=== PATIENT | female | born 1955 | race Caucasian/White ===

== ENCOUNTER 2021-01-31 16:22 | Inpatient (IN) | payer MEDICARE, OTHER ==
[~2021-01-31] VITALS: Ht 175.2 cm; Wt 120.2 kg
[~2021-01-31 16:22] MED LIST: ATIVAN0.5 MG PO; BUMETANIDE0.5 MG PO; HUMALOG KW200 UNIT/1 SQ; INVEGA3 MG PO; KEPPRA500 MG PO; KLOR-CON 1010 ME1 PO; LANTUS SOL100 UNIT/1 SC; LIPITOR10 MG PO; VIMPAT50 MG PO; VITAMIN D325 MC1 PO
[2021-01-31 16:39] LABS: BASO % 0.5 % (0.0-1.0); EOS # 0.1 10*3/uL (0.0-0.4); EOS % 1.7 % (1.0-4.0); HEMATOCRIT 36.3 % (37.0-47.0); LYMPH % 13.4 % (27.0-41.0); MEAN CELL VOLUME 90.5 fl (81.0-99.0); MEAN CORPUSCULAR HGB 28.4 pg (27.0-31.0); MEAN CORPUSCULAR HGB CONC 31.4 g/dl (33.0-37.0); MEAN PLATELET VOLUME 12.9 fl (9.6-12.3); MONO # 0.6 10*3/uL (0.1-1.0); MONO % 8.4 % (3.0-9.0); NEUT # 5.7 10*3/uL (2.3-7.9); NEUT % 75.6 % (47.0-73.0); PLATELET COUNT AUTOMATED 137 10*3/uL (130-400); RED BLOOD COUNT 4.01 10*6/uL (4.10-5.10); RED CELL DISTRI WIDTH 15.4 % (0-14.5); WHITE BLOOD COUNT 7.6 10*3/uL (4.8-10.8)
[2021-01-31 16:50] VITALS: BP 185/72
[2021-01-31 16:56] LABS: ALBUMIN 2.4 gm/dl (3.1-4.5); CREATININE 1.75 mg/dL (0.55-1.02); POTASSIUM 3.8 mmol/L (3.5-5.1); TOTAL PROTEIN 5.5 gm/dL (6.4-8.2)
[2021-01-31 17:04] LABS: THYROID STIM HORMONE (HS) 2.28 uIU/ml (0.358-4.75)
[2021-01-31 18:35] LABS: BILIRUBIN Negative (Negative); BLOOD 1+ (Negative); CLARITY Clear (Clear); COLOR Yellow (Yellow); GLUCOSE Negative (Negative); KETONE Negative (Negative); LEUKO ESTERASE Negative (Negative); NITRITE Negative (Negative); SPECIFIC GRAVITY 1.015 (1.001-1.030); UROBILINOGEN 0.2 E.U./dl (0.0-1.0)
[2021-01-31 18:45] LABS: RBC 0-2 rbc/hpf (0-2)
[2021-01-31 18:46] LABS: BACTERIA TRACE; EPITHELIAL CELLS 0-2; WBC 0-2 wbc/hpf (0-5)
[2021-01-31 20:30] VITALS: BP 131/57
[2021-01-31 21:30] VITALS: BP 130/72
[2021-01-31 21:38] LABS: CREATININE 1.73 mg/dL (0.55-1.02); POTASSIUM 3.8 mmol/L (3.5-5.1)
[2021-01-31 22:00] VITALS: BP 128/71
[2021-01-31 23:00] VITALS: BP 141/79
[2021-02-01] VITALS (7 sets, daily range): BP systolic 133–164; BP diastolic 65–84
[2021-02-01 05:19] LABS: ALBUMIN 2.1 gm/dl (3.1-4.5); CREATININE 1.7 mg/dL (0.55-1.02); POTASSIUM 3.6 mmol/L (3.5-5.1); TOTAL PROTEIN 5.1 gm/dL (6.4-8.2)
[2021-02-01 05:25] LABS: FREE T4 0.95 ng/dl (0.76-1.46); THYROID STIM HORMONE (HS) 2.71 uIU/ml (0.358-4.75)
[2021-02-01 07:17] LABS: BASO % 0.7 % (0.0-1.0); EOS # 0.1 10*3/uL (0.0-0.4); HEMATOCRIT 33.5 % (37.0-47.0); LYMPH # 0.9 10*3/uL (1.3-4.4); LYMPH % 16.5 % (27.0-41.0); MEAN CELL VOLUME 92.3 fl (81.0-99.0); MEAN CORPUSCULAR HGB 28.7 pg (27.0-31.0); MEAN PLATELET VOLUME 13.5 fl (9.6-12.3); MONO # 0.5 10*3/uL (0.1-1.0); MONO % 9.4 % (3.0-9.0); PLATELET COUNT AUTOMATED 121 10*3/uL (130-400); RED BLOOD COUNT 3.63 10*6/uL (4.10-5.10); RED CELL DISTRI WIDTH 15.4 % (0-14.5); WHITE BLOOD COUNT 5.6 10*3/uL (4.8-10.8)
[2021-02-01 08:05] LABS: VITAMIN D, 25-HYDROXY 32.1 ng/mL (30-100)
[2021-02-02 03:25] VITALS: BP 163/73
[2021-02-02 06:09] LABS: POTASSIUM 3.8 mmol/L (3.5-5.1)
[2021-02-02 06:17] LABS: CREATININE 1.53 mg/dL (0.55-1.02)
[2021-02-02 06:34] LABS: BASO % 0.6 % (0.0-1.0); EOS # 0.1 10*3/uL (0.0-0.4); EOS % 1.5 % (1.0-4.0); HEMATOCRIT 35.6 % (37.0-47.0); LYMPH # 0.9 10*3/uL (1.3-4.4); LYMPH % 13.3 % (27.0-41.0); MEAN CORPUSCULAR HGB 28.2 pg (27.0-31.0); MEAN CORPUSCULAR HGB CONC 30.6 g/dl (33.0-37.0); MEAN PLATELET VOLUME 13.7 fl (9.6-12.3); MONO # 0.6 10*3/uL (0.1-1.0); MONO % 9.1 % (3.0-9.0); NEUT % 75.2 % (47.0-73.0); PLATELET COUNT AUTOMATED 124 10*3/uL (130-400); RED BLOOD COUNT 3.87 10*6/uL (4.10-5.10); RED CELL DISTRI WIDTH 14.9 % (0-14.5); WHITE BLOOD COUNT 6.6 10*3/uL (4.8-10.8)
[2021-02-02 07:34] VITALS: BP 139/77
[2021-02-02 13:38] VITALS: BP 150/70
[2021-02-02] MEDS ORDERED: TOBRAMYCIN 5 ML5 M1 OPH (14:45)
[2021-02-02] MEDS ORDERED: ARTIFICIAL TEAR15 M9 OP (15:32)
== END 2021-02-02 15:00 | DRG 637 ==
LOC: ED 16:22 → EDHOLD 22:01
PROVIDERS: Emergency Medicine; Internal Medicine; Student in an Organized Health Care Education/Training Program; ADMIT Family Medicine; ATTEND Family Medicine
DX: E11.649 Type 2 diabetes mellitus with hypoglycemia without coma (principal); G93.41 Metabolic encephalopathy; E43 Unspecified severe protein-calorie malnutrition; E87.0 Hyperosmolality and hypernatremia; Z68.42 Body mass index [BMI] 45.0-49.9, adult; N18.4 Chronic kidney disease, stage 4 (severe); F25.9 Schizoaffective disorder, unspecified; I48.91 Unspecified atrial fibrillation; Z20.822 Contact with and (suspected) exposure to COVID-19; G40.909 Epilepsy, unspecified, not intractable, without status epilepticus; I12.9 Hypertensive chronic kidney disease with stage 1 through stage 4 chronic kidney disease, or unspecified chronic kidney disease; E11.22 Type 2 diabetes mellitus with diabetic chronic kidney disease; E11.319 Type 2 diabetes mellitus with unspecified diabetic retinopathy without macular edema; D64.9 Anemia, unspecified; E87.8 Other disorders of electrolyte and fluid balance, not elsewhere classified; E11.65 Type 2 diabetes mellitus with hyperglycemia; Z98.2 Presence of cerebrospinal fluid drainage device; Z79.4 Long term (current) use of insulin; Z90.710 Acquired absence of both cervix and uterus; Z98.49 Cataract extraction status, unspecified eye; Z88.0 Allergy status to penicillin; Z88.8 Allergy status to other drugs, medicaments and biological substances; Z79.899 Other long term (current) drug therapy

== ENCOUNTER 2021-02-04 21:04 | Inpatient (IN) | payer MEDICARE, OTHER ==
[~2021-02-04] VITALS: Ht 172.7 cm; Wt 142.4 kg
[~2021-02-04 21:04] MED LIST changes: +ARTIFICIAL TEAR15 M9 OP; +TOBRAMYCIN 5 ML5 M1 OPH
[2021-02-05] VITALS: BP 186/95
[2021-02-05 03:12] VITALS: BP 155/88
[2021-02-05 06:40] LABS: BASO % 0.5 % (0.0-1.0); EOS # 0.1 10*3/uL (0.0-0.4); EOS % 2.3 % (1.0-4.0); HEMATOCRIT 36.7 % (37.0-47.0); LYMPH # 0.9 10*3/uL (1.3-4.4); LYMPH % 15.6 % (27.0-41.0); MEAN CELL VOLUME 89.7 fl (81.0-99.0); MEAN CORPUSCULAR HGB 28.1 pg (27.0-31.0); MEAN CORPUSCULAR HGB CONC 31.3 g/dl (33.0-37.0); MEAN PLATELET VOLUME 13.7 fl (9.6-12.3); MONO # 0.5 10*3/uL (0.1-1.0); MONO % 8.3 % (3.0-9.0); NEUT # 4.1 10*3/uL (2.3-7.9); NEUT % 73.1 % (47.0-73.0); PLATELET COUNT AUTOMATED 115 10*3/uL (130-400); RED BLOOD COUNT 4.09 10*6/uL (4.10-5.10); RED CELL DISTRI WIDTH 14.6 % (0-14.5); WHITE BLOOD COUNT 5.6 10*3/uL (4.8-10.8)
[2021-02-05 06:51] LABS: ALBUMIN 1.9 gm/dl (3.1-4.5); CREATININE 1.32 mg/dL (0.55-1.02); POTASSIUM 3.5 mmol/L (3.5-5.1); TOTAL PROTEIN 5.1 gm/dL (6.4-8.2)
[2021-02-05 08:00] VITALS: BP 136/88
[2021-02-05 12:00] VITALS: BP 129/73
[2021-02-05 16:00] VITALS: BP 156/92
[2021-02-05 20:00] VITALS: BP 159/97
[2021-02-06] VITALS: BP 172/97
[2021-02-06 06:50] LABS: HEMATOCRIT 37.2 % (37.0-47.0); MEAN CORPUSCULAR HGB 28.8 pg (27.0-31.0); MEAN CORPUSCULAR HGB CONC 30.9 g/dl (33.0-37.0); MEAN PLATELET VOLUME 13.8 fl (9.6-12.3); PLATELET COUNT AUTOMATED 123 10*3/uL (130-400); RED CELL DISTRI WIDTH 14.4 % (0-14.5); WHITE BLOOD COUNT 6.8 10*3/uL (4.8-10.8)
[2021-02-06 06:56] LABS: CREATININE 1.25 mg/dL (0.55-1.02); POTASSIUM 3.4 mmol/L (3.5-5.1)
[2021-02-06 06:57] LABS: TOTAL PROTEIN 5.3 gm/dL (6.4-8.2)
[2021-02-06 08:00] VITALS: BP 136/99
[2021-02-06 09:08] LABS: BASOPHILS 2 % (0-1); PLATELET SUFFICIENCY LOW (NORMAL); TOTAL CELLS COUNTED 100 #CELLS
[2021-02-06 12:00] VITALS: BP 124/67
[2021-02-06 16:00] VITALS: BP 148/90
[2021-02-06 17:33] LABS: BASO # 0.1 10*3/uL (0.0-0.1); BASO % 0.6 % (0.0-1.0); EOS # 0.2 10*3/uL (0.0-0.4); EOS % 2.1 % (1.0-4.0); HEMATOCRIT 38.5 % (37.0-47.0); LYMPH # 1.2 10*3/uL (1.3-4.4); LYMPH % 13.8 % (27.0-41.0); MEAN CORPUSCULAR HGB 28.5 pg (27.0-31.0); MEAN CORPUSCULAR HGB CONC 31.9 g/dl (33.0-37.0); MONO # 0.7 10*3/uL (0.1-1.0); MONO % 7.9 % (3.0-9.0); NEUT # 6.4 10*3/uL (2.3-7.9); NEUT % 75.4 % (47.0-73.0); RED BLOOD COUNT 4.32 10*6/uL (4.10-5.10); RED CELL DISTRI WIDTH 14.4 % (0-14.5); WHITE BLOOD COUNT 8.5 10*3/uL (4.8-10.8)
[2021-02-06 17:38] LABS: MEAN CELL VOLUME 89.1 fl (81.0-99.0); PLATELET COUNT AUTOMATED 160 10*3/uL (130-400)
[2021-02-06 17:51] LABS: ALBUMIN 2.1 gm/dl (3.1-4.5); ALKALINE PHOSPHATASE 154 U/L (45-117); BUN 18 mg/dl (7-24); CHLORIDE 116 mmol/L (98-107); CREATININE 1.37 mg/dL (0.55-1.02); POTASSIUM 3.9 mmol/L (3.5-5.1); SGOT/AST 15 IU/L (3-35); SGPT/ALT 18 U/L (12-78); SODIUM 147 mmol/L (136-145); TOTAL PROTEIN 5.4 gm/dL (6.4-8.2)
[2021-02-06 17:55] LABS: TROPONIN I < 0.015 ng/ml (<0.045)
[2021-02-06 20:00] VITALS: BP 156/91
[2021-02-07] VITALS (7 sets, daily range): BP systolic 143–184; BP diastolic 78–94
[2021-02-07 06:54] LABS: BASO # 0.1 10*3/uL (0.0-0.1); BASO % 0.9 % (0.0-1.0); EOS # 0.3 10*3/uL (0.0-0.4); EOS % 4.6 % (1.0-4.0); HEMATOCRIT 37.9 % (37.0-47.0); LYMPH # 1.1 10*3/uL (1.3-4.4); LYMPH % 17.5 % (27.0-41.0); MEAN CELL VOLUME 90.7 fl (81.0-99.0); MEAN CORPUSCULAR HGB CONC 30.9 g/dl (33.0-37.0); MEAN PLATELET VOLUME 13.7 fl (9.6-12.3); MONO # 0.6 10*3/uL (0.1-1.0); MONO % 8.5 % (3.0-9.0); NEUT # 4.4 10*3/uL (2.3-7.9); NEUT % 68.2 % (47.0-73.0); PLATELET COUNT AUTOMATED 130 10*3/uL (130-400); RED BLOOD COUNT 4.18 10*6/uL (4.10-5.10); RED CELL DISTRI WIDTH 14.6 % (0-14.5); WHITE BLOOD COUNT 6.5 10*3/uL (4.8-10.8)
[2021-02-07 07:19] LABS: CREATININE 1.32 mg/dL (0.55-1.02); POTASSIUM 3.7 mmol/L (3.5-5.1)
[2021-02-08] VITALS: BP 155/82
[2021-02-08 07:38] LABS: CREATININE 1.39 mg/dL (0.55-1.02); POTASSIUM 3.6 mmol/L (3.5-5.1)
[2021-02-08 08:00] VITALS: BP 152/85
[2021-02-08 12:00] VITALS: BP 163/98
[2021-02-08 16:00] VITALS: BP 149/87
[2021-02-08 17:15] VITALS: BP 150/78
[2021-02-08 20:00] VITALS: BP 134/85
[2021-02-08 21:59] LABS: BASO # 0.1 10*3/uL (0.0-0.1); BASO % 0.6 % (0.0-1.0); EOS # 0.2 10*3/uL (0.0-0.4); EOS % 2.1 % (1.0-4.0); HEMATOCRIT 35.7 % (37.0-47.0); LYMPH # 0.9 10*3/uL (1.3-4.4); LYMPH % 10.9 % (27.0-41.0); MEAN CELL VOLUME 89.7 fl (81.0-99.0); MEAN CORPUSCULAR HGB 28.4 pg (27.0-31.0); MEAN CORPUSCULAR HGB CONC 31.7 g/dl (33.0-37.0); MONO # 0.7 10*3/uL (0.1-1.0); MONO % 8.2 % (3.0-9.0); NEUT # 6.4 10*3/uL (2.3-7.9); PLATELET COUNT AUTOMATED 130 10*3/uL (130-400); RED BLOOD COUNT 3.98 10*6/uL (4.10-5.10); RED CELL DISTRI WIDTH 14.3 % (0-14.5); WHITE BLOOD COUNT 8.2 10*3/uL (4.8-10.8)
[2021-02-08 22:12] LABS: ALBUMIN 2.1 gm/dl (3.1-4.5); CREATININE 1.42 mg/dL (0.55-1.02); POTASSIUM 3.4 mmol/L (3.5-5.1); TOTAL PROTEIN 5.2 gm/dL (6.4-8.2)
[2021-02-09] VITALS: BP 133/64
[2021-02-09 07:02] LABS: CREATININE 1.43 mg/dL (0.55-1.02); POTASSIUM 3.9 mmol/L (3.5-5.1)
[2021-02-09 08:00] VITALS: BP 157/82
[2021-02-09 12:00] VITALS: BP 152/88
[2021-02-09] MEDS ORDERED: KEPPRA500 MG PO (15:22)
[2021-02-09] MEDS ORDERED: ASPIRIN ADULT L81 M2 PO (15:22)
[2021-02-09] MEDS ORDERED: METOPROLOL SUCC25 M2 PO (15:22)
[2021-02-09] MEDS ORDERED: XARE20MG PO (15:28)
[2021-02-09 16:00] VITALS: BP 142/88
[2021-02-09 20:00] VITALS: BP 156/95
[2021-02-10] VITALS: BP 152/103
[2021-02-10 08:00] VITALS: BP 142/67
[2021-02-10 12:00] VITALS: BP 149/86
[2021-02-10 16:00] VITALS: BP 143/90
[2021-02-10 20:00] VITALS: BP 155/92
== END 2021-02-10 22:23 | disposition short-term general hospital (02) | DRG 64 ==
LOC: 4E 21:04
PROVIDERS: Hospitalist; Internal Medicine; ADMIT Internal Medicine; ATTEND Internal Medicine
PROC: BD1BYZZ Fluoroscopy of Mouth/Oropharynx using Other Contrast (ICD-10-PCS; principal; 2021-02-06)
DX: I63.9 Cerebral infarction, unspecified (principal); E43 Unspecified severe protein-calorie malnutrition; N17.0 Acute kidney failure with tubular necrosis; N18.4 Chronic kidney disease, stage 4 (severe); I48.20 Chronic atrial fibrillation, unspecified; I82.431 Acute embolism and thrombosis of right popliteal vein; Z68.42 Body mass index [BMI] 45.0-49.9, adult; E87.0 Hyperosmolality and hypernatremia; D64.9 Anemia, unspecified; I12.9 Hypertensive chronic kidney disease with stage 1 through stage 4 chronic kidney disease, or unspecified chronic kidney disease; G31.84 Mild cognitive impairment of uncertain or unknown etiology; F32.9 Major depressive disorder, single episode, unspecified; E11.22 Type 2 diabetes mellitus with diabetic chronic kidney disease; F25.9 Schizoaffective disorder, unspecified; E11.65 Type 2 diabetes mellitus with hyperglycemia; G40.909 Epilepsy, unspecified, not intractable, without status epilepticus; E66.01 Morbid (severe) obesity due to excess calories; D69.6 Thrombocytopenia, unspecified; E87.6 Hypokalemia; I65.21 Occlusion and stenosis of right carotid artery; Z90.710 Acquired absence of both cervix and uterus; Z88.0 Allergy status to penicillin; Z88.8 Allergy status to other drugs, medicaments and biological substances; Z79.4 Long term (current) use of insulin